=== PATIENT | female | born 1945 | race Caucasian/White ===

== ENCOUNTER 2017-06-17 22:56 | Inpatient (IN) | payer OTHER ==
[~2017-06-17] VITALS: Ht 177.8 cm; Wt 135.4 kg
[~2017-06-17 22:56] MED LIST: FLONASE 0.05%50 MCG; LIPITOR 20 MG T20 M1 PO; NABUMETONE 750750 M1 PO; NOHOMEMEDICATIONS; NORCO 5-325 TA1 EACH PO; OXYCONTIN10 M1 PO
[2017-06-17 22:58] VITALS: BP 165/98
[2017-06-18 01:17] VITALS: BP 159/87
[2017-06-18 02:30] VITALS: BP 180/81
[2017-06-18 03:36] VITALS: BP 128/74
[2017-06-18 11:27] LABS: HEMATOCRIT 41.8 % (37.0-47.0); MCH 30.5 pg (26.0-34.0); MCHC 33.4 g/dL (28.0-37.0); MCV 91.4 fL (80.0-100.0); MPV 7.8 fl. (7.2-11.1); RBC 4.57 mil/uL (4.20-5.00)
[2017-06-18 11:38] LABS: ALBUMIN 3.5 g/dL (3.4-5.0); CALCIUM 8.1 mg/dL (8.5-10.1); CREATININE 0.9 mg/dL (0.6-1.3); POTASSIUM 4.1 mmol/L (3.5-5.1); TOTAL BILIRUBIN 0.4 mg/dL (<0.1-1.0); TOTAL PROTEIN 6.8 g/dL (6.4-8.2)
--- NOTE | 2017-06-18 12:34 | EKG ---
[place] [address] ELECTROCARDIOGRAM REPORT Name: JUANCARLOS LOPEZ Room: [address] ADM IN .R.#: [id number] Admission: 06/18/17 Attend Phys: Marcus Maldonado, Discharge: Date of : 45 Report #: [id number] THIS REPORT FOR: //name// [facility] Test Date: 2017-06-18 Test Time: 09:21:48 Pat Name: JUANCARLOSTANG LOPEZ Department: Room: [address] Gender: F Fire Safety Inspector: REGULO : 1945 Requested By: Paloma Rubalcava Order Number: [id number] Reading MD: Mohan Borden Measurements Intervals [place] Rate: 75 P: 24 [place]: 154 QRS: 71 QRSD: 105 T: 81 QT: 401 QTc: 448 Interpretive Statements Sinus rhythm Nonspecific T abnormalities, lateral leads Compared to ECG 12/06/2005 20:26:42 T-wave abnormality now present Electronically Signed On 06-18-2017 12:34:41 [employer] by Mohan Borden [email or web address] <ELECTRONICALLY SIGNED> By: Mohan Borden MD, [facility] 06/18/17 1234 0921 Mohan Borden MD, [facility] /EPI
[2017-06-18 14:33] VITALS: BP 150/86
[2017-06-18 16:31] VITALS: BP 152/80
[2017-06-18 20:00] VITALS: BP 109/70
[2017-06-19 03:43] LABS: HEMOGLOBIN 14.1 gm/dL (12.0-15.0); MCH 30.8 pg (26.0-34.0); MCHC 33.7 g/dL (28.0-37.0); MCV 91.5 fL (80.0-100.0); MPV 7.9 fl. (7.2-11.1); RBC 4.59 mil/uL (4.20-5.00); RDW-CV 14.2 % (10.5-14.5)
[2017-06-19 03:59] LABS: CALCIUM 8.3 mg/dL (8.5-10.1); CREATININE 0.8 mg/dL (0.6-1.3); MAGNESIUM 1.7 mg/dL (1.8-2.4)
[2017-06-19 08:20] VITALS: BP 139/75
[2017-06-19 16:00] VITALS: BP 127/78
[2017-06-19 20:45] VITALS: BP 141/73
[2017-06-20 04:52] LABS: CALCIUM 8.5 mg/dL (8.5-10.1); CREATININE 0.8 mg/dL (0.6-1.3); MAGNESIUM 1.7 mg/dL (1.8-2.4); POTASSIUM 3.9 mmol/L (3.5-5.1)
[2017-06-20 04:55] LABS: HEMATOCRIT 39.7 % (37.0-47.0); HEMOGLOBIN 13.6 gm/dL (12.0-15.0); MCHC 34.3 g/dL (28.0-37.0); MCV 90.3 fL (80.0-100.0); MPV 8.3 fl. (7.2-11.1); RBC 4.4 mil/uL (4.20-5.00); RDW-CV 14.3 % (10.5-14.5); WBC 6.1 thou/uL (4.0-11.0)
[2017-06-20 07:25] VITALS: BP 137/75
[2017-06-20] MEDS ORDERED: IBUPROFEN 400400 M2 PO (09:55)
[2017-06-20] MEDS ORDERED: TRAMADOL 50 MG50 MG PO (09:55)
[2017-06-20] MEDS ORDERED: OXYCODONE HCL5 M1 PO (09:55)
[2017-06-20] MEDS ORDERED: LIDOPATCH1 EACH TOP (09:55)
[2017-06-20 10:30] VITALS: BP 137/75
[2017-06-20 10:39] VITALS: BP 137/75
== END 2017-06-20 11:05 | disposition home health service (06) | DRG 563 ==
LOC: M.ERS 22:56 → M.3W 06-18 00:16 → M.TBA-ER 06-18 00:16 → M.3W 06-18 01:28
PROVIDERS: Internal Medicine; ADMIT Family Medicine
PROC: 2W3BX1Z Immobilization of Left Upper Arm using Splint (ICD-10-PCS; principal; 2017-06-19)
DX: S42.212A Unspecified displaced fracture of surgical neck of left humerus, initial encounter for closed fracture (principal); J98.11 Atelectasis; S20.219A Contusion of unspecified front wall of thorax, initial encounter; F17.210 Nicotine dependence, cigarettes, uncomplicated; W18.39XA Other fall on same level, initial encounter; E78.5 Hyperlipidemia, unspecified; Z96.652 Presence of left artificial knee joint; S00.81XA Abrasion of other part of head, initial encounter; Z90.49 Acquired absence of other specified parts of digestive tract; Z87.442 Personal history of urinary calculi; Y93.89 Activity, other specified; Y92.89 Other specified places as the place of occurrence of the external cause; Y99.8 Other external cause status

== ENCOUNTER 2019-04-09 13:27 | Emergency (ER) | payer OTHER ==
[~2019-04-09] VITALS: Ht 177.8 cm; Wt 120.2 kg
[~2019-04-09 13:27] MED LIST changes: +IBUPROFEN 400400 M2 PO; +LIDOPATCH1 EACH TOP; +OXYCODONE HCL5 M1 PO; +TRAMADOL 50 MG50 MG PO
[2019-04-09] MEDS ORDERED: ALLOPURINOL 10100 M3 PO (13:51)
[2019-04-09] MEDS ORDERED: LOPID600 MG PO (13:52)
[2019-04-09] MEDS ORDERED: METFORMIN HCL500 M3 PO (13:52)
[2019-04-09] MEDS ORDERED: DOXYCYCLINE 10100 MG PO ×2 (14:31)
[2019-04-09 15:01] VITALS: BP 146/74
== END 2019-04-09 15:03 | disposition home or self-care (01) ==
LOC: M.ERS 13:27
DX: N76.4 Abscess of vulva (principal); E78.5 Hyperlipidemia, unspecified; F17.210 Nicotine dependence, cigarettes, uncomplicated; Z87.442 Personal history of urinary calculi; Z96.652 Presence of left artificial knee joint; Z90.49 Acquired absence of other specified parts of digestive tract

== ENCOUNTER → 2019-07-04 | Outpatient (CLI) | payer MEDICARE ==
[~2019-07-04] MED LIST changes: +ALLOPURINOL 10100 M3 PO; +DOXYCYCLINE 10100 MG PO; +FLONASE 0.05%50 MCG NARES; +HYDROCODON-ACE1 EAC7 PO; +LOPID600 MG PO; +METFORMIN HCL500 M3 PO; +MUPIROCIN15 GM TOP; +MYRBETRIQ50 MG PO; +NORCO 5-325 TA1 EAC1 PO
--- NOTE | ~2019-07-04 | PAINCON ---
[address] [address] PAIN MANAGEMENT CONSULTATION Name: JUANCARLOS LOPEZ Room: [facility].#: [id number] Admission: 07/04/19 Attend Phys: Jairo Hurt MD Discharge: Date of : 45 Report #: [id number] THIS REPORT FOR: //name// cc: Lavelle Gaytan MD, Anthony MD ~ THIS REPORT FOR: //name// CC: Lavelle Hurt DATE OF SERVICE: 07/04/2019 HISTORY OF PRESENT ILLNESS: The patient is a 74-year-old female who has been referred to the Pain Clinic for evaluation of back and leg pain. The patient states that over the past few weeks, she has noted worsening of pain and discomfort. Her pain involves the left leg. There is pain on the left side that radiates down from her left hip to the left knee area. She did have some back pain about 7 years ago. Things have become more problematic. She did have a left knee replacement. She has had pain and discomfort and described sciatic pain in the past. She has been walking with a cane over the last 3 weeks because of the pain. She states that it feels like she is walking on knives when she is placing her full portion of her weight on her left leg. She has seen her chiropractor. That treatment did not significantly change her pain. She rates her pain as a 10/10 at this point. ALLERGIES: No known drug allergies. CURRENT MEDICATIONS: Allopurinol 100 mg, Flonase 0.05% nasal spray, Lopid 600 mg, hydrocodone 5/325 one p.o. q.4-6 hours p.r.n., ibuprofen 400 mg, metformin 500 mg, Myrbetriq 50 mg, and mupirocin cream topical b.i.d. PAST MEDICAL HISTORY: Kidney stones, kidney tumor, right knee pain, hyperlipidemia, gout, type 2 diabetes with polyneuropathy and overactive bladder, hypertriglyceridemia, B12 deficiency, carpal tunnel syndrome, hyperlipidemia, and nephrolithiasis. PAST SURGICAL HISTORY: Left total knee replacement, cholecystectomy, right knee clean out, and meniscus repair. SOCIAL HISTORY: She is a retired realtor. REVIEW OF SYSTEMS: Generally good health, fevers, night sweats, fatigue, wears glasses, blurred vision, shortness of breath, joint pain, joint stiffness, weakness of muscles and joints, muscle pain and cramps, [place] [address] PAIN MANAGEMENT CONSULTATION Name: JUANCARLOS LOPEZ Room: [facility]#: [id number] Admission: 07/04/19 Attend Phys: Jairo Hurt MD Discharge: Date of : 45 Report #: [id number] PAIN CLINIC ASSESSMENT AND PQRS: 1. 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 The patient is not being treated for rheumatoid arthritis. 2. Height 5 feet 10 inches, weight 274 pounds, BMI is 39. 3. Vital Signs: Blood pressure 141/79, heart rate 76, respiratory rate 16, room air saturation is 97%, and temperature is 98.6. 4. Pain intensity 10/10. 5. Fall history: The patient has not fallen, but she is walking with use of a cane. 6. Blood thinner. The patient is not on a blood thinning medication. 7. Hypertension. The patient is not being treated for hypertension. 8. Opioids greater than 6 weeks. The patient received medication from one source. 9. Risk assessment tool, low for opioid use. 10. Functional assessment tool, reviewed. 11. Recreational drug use: The patient denies. 12. Tobacco: The patient smoked for 47 years. 13. Alcohol. The patient rarely drinks alcoholic beverages. PHYSICAL EXAMINATION: GENERAL: The patient is a well-developed, well-nourished, somewhat obese white female, appears her stated age. She is alert and oriented x 3. Her affect is appropriate. Speech is fluent. HEENT: Normocephalic, atraumatic. Extraocular eye muscles intact. Sclerae nonicteric. Mucous membranes are moist. NECK: Without adenopathy or JVD. HEART: Regular rate. ABDOMEN: Protuberant. Bowel sounds present. LUNGS: Generally clear. EXTREMITIES: Upper extremity muscle strength judged to be 5/5 for the major muscle groups in the upper extremity. The patient is walking with use of a cane. She complains of pain and discomfort in the left leg. Pain radiates down the left side of the leg and follows the L4-5 dermatomal distribution down to the knee. IMPRESSION: L4-5 dermatomal distribution of pain. RECOMMENDATIONS: We discussed the treatment options with the patient. Risks and benefits of an epidural steroid injection were discussed. A model was used to indicate the area of probable pathology. A video was shown, provided for the patient, which indicated lumbar radicular pain. Her pain has followed the L4-5 dermatomal distribution. She will return to the Pain Clinic, at which time she will then undergo [place] [address] PAIN MANAGEMENT CONSULTATION Name: JUANCARLOS LOPEZ Room: [facility]#: [id number] Admission: 07/04/19 Attend Phys: aJiro Hurt MD Discharge: Date of : 45 Report #: [id number] We would like to thank you for letting us participate in her care. We hope she continues to improve. By: [id number]. Amilcar Hurt MD /cristopher
== END ==
LOC: M.PC 08:50
DX: M54.5 Low back pain (principal); M79.605 Pain in left leg; M79.604 Pain in right leg; Z88.8 Allergy status to other drugs, medicaments and biological substances; Z79.899 Other long term (current) drug therapy

== ENCOUNTER → 2019-07-11 | Outpatient (CLI) | payer MEDICARE ==
--- NOTE | 2019-07-19 09:01 | PAINCON ---
[address] [address] PAIN MANAGEMENT CONSULTATION Name: JUANCARLOS LOPEZ Room: [facility]#: [id number] Admission: 07/11/19 Attend Phys: Jairo Hurt MD Discharge: Date of : 45 Report #: [id number] THIS REPORT FOR: //name// cc: Lavelle Gaytan MD, Anthony MD ~ THIS REPORT FOR: //name// CC: Lavelle Hurt DATE OF SERVICE: 07/11/2019 CHIEF COMPLAINT: Left knee pain. HISTORY: The patient is a 74-year-old female who has been seen in the pain clinic because of her left knee pain. The patient has had left knee replacement. She is having pain that radiates down her left leg and buttocks to the area of the knee. Notes that the pain is quite problematic. She has undergone epidural steroid injection in the past and found them beneficial. She returns today for an epidural steroid injection. She has pain in the L4-L5 dermatomal distribution. She rates her pain as a 10/10 today. ALLERGIES: No known drug allergies. CURRENT MEDICATIONS: Allopurinol 100 mg, Flonase 0.05% spray, Lopid 600 mg, hydrocodone 5/325 q. 4-6 hours, ibuprofen 400 mg, metformin 500 mg, Myrbetriq 50 mg, Mupirocin cream topical b.i.d. PAIN CLINIC ASSESSMENT AND PQRS: 1. The patient has some has some osteoarthritic changes in her left knee. She has had a knee replacement. The patient is not being treated for rheumatoid arthritis. 2. Height 5 feet 10 inch, weight 274 pounds, BMI is 39.4. 3. Vital Signs: Blood pressure 141/79, heart rate 76, respiratory rate 16, room air saturation is 94%, temperature 98.6. 4. Pain intensity is 10/10. 5. Fall history: The patient has not fallen. She is walking with use of a cane. 6. Blood thinner. The patient is not on a blood thinning medication. 7. Hypertension. The patient is not being treated for hypertension. 8. Opioids greater than 6 weeks. The patient receives medication from one source the pain clinic. 9. Risk assessment tool, low for opioid use. 10. Functional assessment tool reviewed. 11. Recreational drug use: The patient denies. 12. Tobacco: The patient smokes. Has smoked for 47 [place] [address] PAIN MANAGEMENT CONSULTATION Name: JUANCARLOS LOPEZ Room: [facility]#: [id number] Admission: 07/11/19 Attend Phys: Jairo Hurt MD Discharge: Date of : 45 Report #: [id number] smoke. 13. Alcohol: The patient rarely drinks alcoholic beverages. PHYSICAL EXAMINATION: GENERAL: The patient is a well-developed, well-nourished white female. She is obese. Appears her stated age. She is alert and oriented x 3. Her affect is appropriate. Speech is fluent. HEENT: Normocephalic, atraumatic. Extraocular eye muscles intact. Sclerae nonicteric. Mucous membranes are moist. NECK: Without adenopathy or JVD. HEART: Regular rate. ABDOMEN: Protuberant. Bowel sounds present. LUNGS: Generally clear. MUSCULOSKELETAL: Upper extremity muscle strength judged to be 5-/5 for the major muscle groups in the upper extremity. The patient walks and ambulates with use of a cane. Complains of pain that is radiating down the left side of her leg to the level of the knee in the L4-L5 dermatomal distribution with some pain that goes down [id number] in the L4-L5 dermatomal distribution. IMPRESSION: 1. Lumbar radiculopathy, L4-L5 dermatomal distribution. 2. Kidney stones. 3. Kidney tumor. 4. Hyperlipidemia. 5. Gout. 6. Type 2 diabetes. 7. overactive bladder. 8. Hypertriglyceridemia. 9. B12 deficiency. RECOMMENDATIONS: We discussed treatment options with the patient. Risks and benefits of an epidural steroid injection were discussed. Possible complications of the procedure, which could include but are not limited to infection, worsening pain, no improvement in pain, nerve damage were discussed. The patient elects to proceed. PROCEDURE NOTE: The patient was taken to the procedure area. She was then assisted in getting on the examination table. Her back was sterilely prepped with a Betadine solution. This was allowed to dry. Fluoroscopy using anterior, posterior as well as lateral viewing were implemented. At the L4-L5 area using a midline approach 0.25% bupivacaine was infiltrated. The area was anesthetized. A 17-gauge Tuohy with loss of resistance technique was used to gain access to the epidural space. There was no CSF, heme or paresthesia. Total of 80 mg Depo-Medrol, 40 mg triamcinolone and 2 mL of 0.25% bupivacaine was injected slowly. The patient did note some sensory changes down the L5-S1 dermatomal distribution. She did not have any paresthesia [place] [address] PAIN MANAGEMENT CONSULTATION Name: JUANCARLOS LOPEZ Room: [facility]#: [id number] Admission: 07/11/19 Attend Phys: Jairo Hurt MD Discharge: Date of : 45 Report #: [id number] of pain during the procedure. We would like to thank you for letting us participate in her care. We hope she continues to improve. <ELECTRONICALLY SIGNED> By: Jairo Hurt MD 07/19/19 0901 [id number] Hurt MD /[facility]
== END | disposition home or self-care (01) ==
LOC: M.PC 03:57
DX: M54.16 Radiculopathy, lumbar region (principal); M25.562 Pain in left knee; E11.9 Type 2 diabetes mellitus without complications; M10.9 Gout, unspecified; E78.5 Hyperlipidemia, unspecified; E78.1 Pure hyperglyceridemia; Z87.442 Personal history of urinary calculi; Z98.890 Other specified postprocedural states; Z79.899 Other long term (current) drug therapy; Z96.652 Presence of left artificial knee joint

== ENCOUNTER → 2019-09-19 | Outpatient (CLI) | payer MEDICARE ==
--- NOTE | ~2019-09-19 | PAINCON ---
[address] [address] PAIN MANAGEMENT CONSULTATION Name: JUANCARLOS LOPEZ [id number] Admission: 09/19/19 Attend Phys: Jairo Hurt MD Discharge: Date of : 45 Report #: [id number] THIS REPORT FOR: //name// cc: Lavelle Gaytan MD, Anthony MD ~ THIS REPORT FOR: //name// CC: Lavelle Hurt DATE OF SERVICE: 09/19/2019 CHIEF COMPLAINT: Low back pain that improved after the last injection. HISTORY: The patient is a 74-year-old female who has been followed in the pain clinic because of lumbar radiculopathy. She underwent an epidural steroid injection because of back pain and left knee discomfort. After the injection, she noticed good results for 3-4 weeks. She has been quite active. She has been doing yard work and other activities of daily living. She feels that she may have overdone it and has noticed a return of pain and discomfort in the same area. She has returned today with a desire to undergo another epidural steroid injection. She rates her pain as a 4-5/10. She finds that the hydrocodone has been helpful. She has been using ibuprofen p.r.n. She feels that she is about 75% improved. She would like to have another injection. She notes some increased discomfort with walking, standing, and climbing stairs. She has used the medication, hydrocodone and found it beneficial. She has used cold compresses and notes some improvement with that modality. ALLERGIES: No known drug allergies. CURRENT MEDICATIONS: Allopurinol 100 mg, Flonase 0.05% spray, Lopid 600 mg, hydrocodone 5/325 one p.o. every 4-6 hours, ibuprofen 400 mg, metformin 500 mg, Myrbetriq 15 mg, and mupirocin cream topical b.i.d. PAIN CLINIC ASSESSMENT AND PQRS: 1. The patient has some osteoarthritic changes in her left knee. She has had a knee replacement. The patient is not being treated for rheumatoid arthritis. 2. Height 5 feet 10 inch, weight 276 pounds, BMI is 40.3. 3. Vital Signs: Blood pressure 152/88, heart rate 70, respiratory rate 16, room air saturation 94%, temperature 98.6. 4. Pain intensity is 4-5/10. 5. Fall history: The patient has not fallen since we saw her last. The patient is not walking with a cane today. 6. Blood thinner. The patient is not on a blood thinning medication. 7. Hypertension. The patient is not being treated for hypertension. 8. Opioids greater than 6 weeks. The [place] [address] PAIN MANAGEMENT CONSULTATION Name: JUANCARLOS LOPEZ Room: [facility]#: [id number] Admission: 09/19/19 Attend Phys: Jairo Hurt MD Discharge: Date of : 45 Report #: [id number] source the pain clinic. 9. Risk assessment tool, low for opioid use. 10. Functional assessment tool reviewed. 11. Recreational drug use. The patient denies. 12. Tobacco: The patient has smoked for 47 years. 13. Alcohol. The patient rarely drinks alcoholic beverages. PHYSICAL EXAMINATION: GENERAL: The patient is a well-developed, well-nourished white female. She is obese. She is alert and oriented x 3. Her affect is appropriate. HEENT: Normocephalic, atraumatic. Extraocular eye muscles intact. Sclerae nonicteric. Mucous membranes are moist. NECK: Without adenopathy or JVD. HEART: Regular rate. ABDOMEN: Protuberant. Bowel sounds present. LUNGS: Generally clear. MUSCULOSKELETAL: Upper extremity muscle strength judged to be 5-/5 for the major muscle groups in the upper extremity. The patient walks and ambulates without a cane today. The patient has pain that is radiating down the left side of her leg to the knee and at the L4 dermatomal distribution with some pain [id number] in the L4-L5 dermatomal distribution. IMPRESSION: 1. Lumbar radiculopathy, L4-L5 dermatomal distribution. 2. Kidney stones. 3. Kidney tumor. 4. Hyperlipidemia. 5. Gout. 6. Type 2 diabetes. 7. Overactive bladder. 8. Hypertriglyceridemia, B12 deficiency. RECOMMENDATIONS: We discussed treatment options with the patient. Risks and benefits of an injection were again discussed. Possible complications of the injection include but are not limited to infection, increased muscle soreness, bleeding, nerve damage, spinal headache. The patient is also aware that Covid-19 is problematic. She does not have any problems after the last injection. She has been staying home. She is observing the CDC guidelines. She would like to proceed with another injection. PROCEDURE NOTE: The patient was taken to the procedure area. She was then assisted in getting on examination table. Her back was sterilely prepped with a Betadine solution at the L4-L5 area. Fluoroscopy using anterior, posterior as well as lateral viewing were implemented. A 25-gauge needle was then used to infiltrate and anesthetize the L4-L5 area. A 17-gauge Tuohy with loss of resistance technique was used to gain access to the epidural space. There was [facility] [address] [place] [address] PAIN MANAGEMENT CONSULTATION Name: JUANCARLOS LOPEZ [facility] [id number] Admission: 09/19/19 Attend Phys: Jairo Hurt MD Discharge: Date of : 45 Report #: [id number] no CSF, heme or paresthesia. Total of 80 mg Depo-Medrol, 40 mg triamcinolone and 2 mL of 0.25% bupivacaine was injected. There were no complications. The patient remained in the pain clinic for an appropriate amount of time. We would like to thank you for letting us participate in her care. We hope she continues to improve. By: [id number]. Amilcar Hurt MD /nt
== END | disposition home or self-care (01) ==
LOC: M.PC 04:23
DX: M54.16 Radiculopathy, lumbar region (principal); G89.29 Other chronic pain; E11.9 Type 2 diabetes mellitus without complications; E78.5 Hyperlipidemia, unspecified; M10.9 Gout, unspecified; E78.1 Pure hyperglyceridemia; Z98.890 Other specified postprocedural states; Z79.899 Other long term (current) drug therapy; Z87.442 Personal history of urinary calculi; Z79.891 Long term (current) use of opiate analgesic